=== PATIENT | female | born 1940 | race Caucasian/White ===

== ENCOUNTER 2020-10-10 06:00 | Outpatient (RCR) | payer MEDICARE, OTHER, SELFPAY | END 2020-10-24 23:59 | disposition home or self-care (01) | LOC: SPT 06:00 | PROVIDERS: Family Provider Nurse Practitioner Family; Referring Provider Neurological Surgery; Visit Provider Neurological Surgery | DX: M54.16 Radiculopathy, lumbar region (principal) | CPT/HCPCS: 97110; 97161 ==

== ENCOUNTER 2020-10-25 06:00 | Outpatient (RCR) | payer MEDICARE, OTHER, SELFPAY | END 2020-11-24 23:59 | disposition home or self-care (01) | LOC: SPT 06:00 | PROVIDERS: Family Provider Nurse Practitioner Family; Referring Provider Neurological Surgery; Visit Provider Neurological Surgery | DX: M54.16 Radiculopathy, lumbar region (principal) | CPT/HCPCS: 97110 ==

== ENCOUNTER 2021-01-27 02:49 | Emergency (ER) | payer MEDICARE, OTHER, SELFPAY ==
[2021-01-27 02:55] VITALS: BP 195/92; PULSE 66; RESP 16; TEMP 36.6; O2SAT 100; BMI 27.1
--- NOTE | 2021-01-27 03:04 | ED_ITS ---
HPI - General Adult General: Chief complaint: General Medical Stated complaint: high bp Time Seen by Provider: 01/27/21 03:04 History of Present Illness: HPI narrative: Patient is a 80-year-old female comes to the ED with elevated blood pressure. Patient just started taking new blood pressure medication valsartan yesterday. Patient says she took her blood pressure at home and the systolic number was over 200. Patient then went to her daughters house and checked blood pressure and systolic number over 200 as well. Patient did say that she had just climbing some steps when she checked her blood pressure the first time. Patient says she is asymptomatic and has no complaints. She then decided to come here to the ED to be evaluated. Denies any neurological symptoms such as change in vision, weakness/numbness tingling to face or extremities, headache. Denies any chest pain or shortness of breath. Associated symptoms: Deny chest pain, dyspnea, headache(s), nausea, rash, palpitations or vomiting Review of Systems Narrative: Patient had elevated blood pressure reading at home. Const: Denies: fever(s), chills or fatigue Eyes: Denies: change in vision or eye discomfort ENMT: Denies: throat pain, odynophagia, nasal discharge or nasal congestion Card: Denies: chest pain, palpitations, edema, swelling of feet/ankles, dyspnea on exertion or orthopnea Resp: Denies: dyspnea, productive cough or non-productive cough GI: Denies: abdominal pain, nausea, vomiting, diarrhea, constipation or hematochezia : Denies: flank pain, dysuria or hematuria Musc: Denies: neck pain, back pain or extremity swelling Skin/Breast: Denies: rash or new lesions Neuro: Denies: headache(s), numbness in extremities or weakness in extremities [facility] ED PFSH: Social History Smoking and tobacco status: never smoked Physical Exam Const: COMMON NORMALS: patient oriented x3 and alert ORIENTATION/CONSCIOUSNESS: Yes oriented to person, Yes oriented to place and Yes oriented to time HENMT: COMMON NORMALS: normocephalic HEAD & SCALP: normocephalic MOUTH: Normal oral and palatal mucosa present THROAT: posterior oropharynx normal and uvula midline Eye: COMMON NORMALS: Equal, round and reactive pupils present and EOMs intact bilaterally PUPIL: Yes Equal, round and reactive pupils present Neck/C-Spine: COMMON NORMALS: supple GENERAL: Yes normal visual inspection Resp: COMMON NORMALS: normal respiratory effort, No retractions, No use of accessory muscles and clear to auscultation bilaterally AUSCULTATION: clear to auscultation bilaterally Cardio: COMMON NORMALS: regular rate, regular rhythm, S1 normal heart sound present, S2 normal heart sound present, No gallops present (Cardio), No clicks present (Cardio), No murmurs present (Cardio) and Peripheral pulses 2+ throughout RATE: regular rate RHYTHM: regular rhythm HEART SOUNDS: S1 normal heart sound present and S2 normal heart sound present PERIPHERAL PULSES: Peripheral pulses 2+ throughout GI: COMMON NORMALS: Normal to inspection, nondistended, normoactive bowel sounds present, Soft to palpation, non-tender and no masses PALPATION: Yes Soft to palpation : COMMON NORMALS: Yes no CVA tenderness BLADDER/KIDNEY EXAM: Yes no CVA tenderness Back/Pelvis: COMMON NORMALS: no CVA tenderness Extremity: COMMON NORMALS: normal to inspection Neuro: COMMON NORMALS: patient oriented x3, CN's II-XII intact bilaterally, moves all extremities and no sensory deficits noted SENSORIUM/ORIENTATION: Yes alert, Yes oriented to person, Yes oriented to place and Yes oriented to time COORDINATION/BALANCE: [id number] test normal SPEECH: speech normal SENSORY EXAM: Yes extremities (Intact to soft touch) MOTOR EXAM: 5/5 motor strength present throughout and No Pronator motor function present COORDINATION: [id number] test normal Skin: GENERAL SKIN EXAM: dry skin Course Vital Signs: Vital signs: Vital Signs Temperature 97.8 F 01/27/21 02:55 Pulse Rate 62 01/27/21 03:42 Respiratory Rate 16 01/27/21 02:55 Blood Pressure 195/92 01/27/21 02:55 Pulse Oximetry 97 01/27/21 03:42 While I was in the room I checked patient's blood pressure twice. One of the readings is 177/92, 184/96. MDM - General Adult MDM Narrative: Medical decision making narrative: Patient is a 80-year-old female comes to the ED with elevated blood pressure readings at home. Patient is asymptomatic and comes in to the ED with no complaints. Denies any headache, vision changes or any neurological symptoms. Patient just started taking a newly prescribed blood pressure med valsartan yesterday. Here in the ED patient had a blood pressure reading of 195/92 initially and then when I was in the room patient had blood pressure readings of 177/92 and 184/96. Patient remained asymptomatic and neuro exam was completely normal. Since blood pressure is trending downward and patient is currently taking a new blood pressure medication and asymptomatic I decided not to give patient any blood pressure lowering meds here in the ED department due to risk of hypotension. patient was diagnosed with hypertension and and discharged home. Told patient to continue checking her blood pressure daily and throughout the day. I also told her to continue taking her valsartan and contact her PCP or care worker tomorrow morning to discuss ED visit. Return to ED precautions given. Patient understood and agreed with plan. Discharge Plan Discharge Patient Disposition: Home Clinical Impression: Hypertension Qualifiers: Hypertension type: unspecified Qualified Code(s): I10 - Essential (primary) hypertension Condition: Stable Prescriptions: No Action gabapentin 300 mg capsule 600 mg PO BID RF: 0 famotidine 20 mg tablet 20 mg PO BID RF: 0 donepezil 10 mg tablet 10 mg PO DAILY RF: 0 metoprolol succinate 25 mg capsule,sprinkle,ER 24hr 25 mg PO DAILY RF: 0 diclofenac sodium 75 mg tablet,delayed release (DR/EC) 75 mg PO BID RF: 0 atorvastatin 20 mg tablet 20 mg PO DAILY RF: 0 zolpidem 5 mg tablet PO RF: 0 azithromycin 250 mg tablet See Rx Instructions PO .COMPLEX Qty: 6 RF: 0 Discharge Orders: Discharge ED (Routine); Ordered 01/27/21 Ordered By: Marcio Saul Referrals: Sisi Cash APN [Primary Care Provider] - Discharge Diet: Regular Discharge Activity: Resume usual activity Patient Instructions: Hypertension (ED) Activity Restrictions/Additional Instructions: Follow-up with medical provider as directed. Contact your PCP or care worker tomorrow to discuss with them your ED visit. Continue monitoring your blood pressure at home daily. Continue taking your home medications including your newly prescribed blood pressure medication. Return to the ER or your medical provider if condition worsens. Please read and understand discharge instructions. If any questions, please ask. Coding Level of Care Code ED [employer] Project Manager for Adria Fwsukumar Exam Comprehensive
[2021-01-27 03:42] VITALS: PULSE 62; O2SAT 97
== END 2021-01-27 03:42 | disposition home or self-care (01) ==
PROVIDERS: Emergency Provider Physician Assistant; PCP Nurse Practitioner Family
DX: I10 Essential (primary) hypertension (principal)
CPT/HCPCS: 99281

== ENCOUNTER 2021-09-24 06:00 | Outpatient (RCR) | payer MEDICARE, OTHER, SELFPAY | END 2021-10-24 23:59 | disposition home or self-care (01) | LOC: TPT 06:00 | PROVIDERS: PCP Nurse Practitioner Family; Referring Provider Physician Assistant Surgical; Visit Provider Physician Assistant Surgical | DX: M54.16 Radiculopathy, lumbar region (principal) | CPT/HCPCS: 97110; 97163 ==

== ENCOUNTER 2021-10-25 06:00 | Outpatient (RCR) | payer MEDICARE, OTHER, SELFPAY | END 2021-11-24 23:59 | disposition home or self-care (01) | LOC: TPT 06:00 | PROVIDERS: PCP Nurse Practitioner Family; Referring Provider Physician Assistant Surgical; Visit Provider Physician Assistant Surgical | DX: M54.16 Radiculopathy, lumbar region (principal) | CPT/HCPCS: 97110; 97164 ==

== ENCOUNTER 2021-11-25 06:00 | Outpatient (RCR) | payer MEDICARE, OTHER, SELFPAY | END 2021-12-22 23:59 | disposition home or self-care (01) | LOC: TPT 06:00 | PROVIDERS: PCP Nurse Practitioner Family; Referring Provider Physician Assistant Surgical; Visit Provider Physician Assistant Surgical | DX: M54.16 Radiculopathy, lumbar region (principal) | CPT/HCPCS: 97110 ==

== ENCOUNTER 2021-12-23 06:00 | Outpatient (RCR) | payer MEDICARE, OTHER, SELFPAY | END 2022-01-09 23:59 | disposition home or self-care (01) | LOC: TPT 06:00 | PROVIDERS: PCP Nurse Practitioner Family; Referring Provider Physician Assistant Surgical; Visit Provider Physician Assistant Surgical | DX: M54.16 Radiculopathy, lumbar region (principal) | CPT/HCPCS: 97110 ==

== ENCOUNTER 2023-07-02 14:00 | Outpatient (CLI) | payer MEDICARE, OTHER, SELFPAY ==
--- NOTE | 2023-07-02 14:12 | XR_ITS ---
WS: [id number] Left knee, 3 views, 07/02/2023 Clinical Data: LEFT MEDIAL KNEE PAIN Comparison: None. Findings: No fractures or dislocations are seen. The joint spaces are normal. The patella is intact with a smal l posterior superior spur. The soft tissues are unremarkable. There is minimal cartilage calcification in the medial and lateral joint spaces. Impression: Minimal posterior left patellar spurring with calcification of the articular cartilage. Kellgren-Ken Classification: grade 1 (doubtful): doubtful joint space narrowing and possible ost eophytic lipping
== END 2023-07-02 14:01 | disposition home or self-care (01) ==
PROVIDERS: PCP Nurse Practitioner Family; Visit Provider Nurse Practitioner Family
DX: M25.562 Pain in left knee (principal); M25.862 Other specified joint disorders, left knee
CPT/HCPCS: 73562

== ENCOUNTER 2023-10-07 08:25 | Emergency (ER) | payer MEDICARE, OTHER, SELFPAY ==
[2023-10-07] VITALS (9 sets, daily range): BP systolic 139–200; BP diastolic 67–98; PULSE 57–78; RESP 18; TEMP 36.9; O2SAT 96–100; BMI 25.0
--- NOTE | 2023-10-07 08:38 | CT_ITS ---
WS: [id number] CT scan of the head, 10/07/2023 Clinical Data: trauma Comparison: None. DLP: 1288.[address] scans at [facility] use at least one of these dose optimization techniques: automated e xposure control; mA and/or kV adjustment per patient size (includes targeted exams where dose is matc hed to clinical indication); or iterative reconstruction. Findings: The ventricular system is normal without shift. The sulci and ventricular system are minimally promin ent. No recent infarct or hemorrhage is seen. There are no abnormal intracerebral masses. The cerebel lum and brainstem are not remarkable. Bony windows of the skull and skull base show no fractures or erosions. There is a dressing over the left frontal bone. The internal auditory canals, sella turcica, intraorbital contents, and paranasal sinuses are unremarkable. The mastoid air cells show sclerosis and poor aeration. Impression: 1. Negative for acute intracranial abnormality. 2. Dressing over left orbit and left frontal bone but no skull fractures are seen. 3. Mild cerebral atrophy.
--- NOTE | 2023-10-07 08:38 | CT_ITS ---
WS: [id number] CT cervical spine. Additional two-dimensional coronal and sagittal reconstruction was performed. 09/24 Clinical Data: trauma Comparison: Cervical spine, 08/25/2019 DLP: 1288.[address] scans at [facility] use at least one of these dose optimization techniques: automated e xposure control; mA and/or kV adjustment per patient size (includes targeted exams where dose is matc hed to clinical indication); or iterative reconstruction. Findings: No compression fractures are seen. There is an anterior cervical disc fusion at C4-C5 with an artific ial disc which is stable and intact. There is a posterior fusion of the right lamina at C4-C5 with pe dicle screws and a connecting che which remains stable. There is degenerative disc narrowing at C3-C4 with anterior and posterior osteophyte formation. There is a bony fusion of the C5, C6 and C7 verteb ra. There is a anterior subluxation of C7 on T1 of 0.2 cm which is probably positional rather than tr aumatic. The spinous processes are in good alignment. The odontoid is unremarkable. There is facet ornna int arthritis at almost every level. There is osteoarthritic change of the C1-C2 articulation. There is no prevertebral soft tissue swelling. The soft tissues of the cervical spine and the lung apices a re not remarkable. Impression: 1. Negative for cervical spine fracture. 2. Stable anterior and posterior cervical fusions at C4-C5. 3. Stable bony fusion of C5-C7. 4. Degenerative disc narrowing at C3-C4.
[2023-10-07 08:51] LABS: Basophils % 0.3 %; Eosinophils # 0.1 10^3/uL (0.0-0.8); Eosinophils % 1.3 %; Hematocrit 40.7 % (36-47); Lymphocytes # 1.7 10^3/uL (0.8-4.8); Lymphocytes % 23.7 %; Mean Corpuscular HGB Conc 32.7 g/dL (30-55); Mean Corpuscular Hemoglobin 31.4 pg (27-33); Mean Platelet Volume 11.4 fL (7.4-10.4); Monocytes # 0.4 10^3/uL (0.2-0.9); Monocytes % 6.3 %; Neutrophils # 4.77 10^3/uL (1.8-7.7); Neutrophils % 68.1 %; Nucleated Red Blood Cells % 0 %; Platelet Count 194 10^3/cmm (157-399); Red Blood Count 4.24 10^6/uL (3.85-5.65); Red Cell Distribution Width 12.7 % (12.1-15.1)
--- NOTE | 2023-10-07 08:51 | ED_ITS ---
HPI - Wound/Laceration 2 General: Chief Complaint: Wound/Laceration Stated Complaint: Fall Time Seen by Provider: 10/07/23 08:28 History of Present Illness: 83-year-old female presents emergency ro om via EMS had stumbled and fell at home this morning as large laceration on her forehead she did not lose consciousness. No nausea or vomiting denies chest pain or shortness of breath Associated symptoms: Denies chills or fever(s) Review of Systems 2 Const: Denies: fever(s) or chills Card: Denies: chest pain Resp: Denies: dyspnea GI: Denies: abdominal pain : Denies: dysuria, urinary frequency or urinary urgency Musc: Denies: neck pain or back pain Skin/Breast: Denies: rash PFSH ED 2 PFSH: Social History Smoking and tobacco/nicotine status: never used tobacco/nicotine Physical Exam 2 Const: COMMON NORMALS: no acute distress GENERAL APPEARANCE: cooperative and comfortable ORIENTATION/CONSCIOUSNESS: Yes awake, Yes oriented to person, Yes oriented to place and Yes oriented to time HENMT: COMMON NORMALS: normocephalic, atraumatic and hearing grossly normal bilaterally HEAD & SCALP: normocephalic and atraumatic Resp: COMMON NORMALS: normal respiratory effort, No retractions, No use of accessory muscles and clear to auscultation bilaterally AUSCULTATION: clear to auscultation bilaterally Cardio: COMMON NORMALS: regular rate, regular rhythm and No murmurs present (Cardio) RATE: regular rate RHYTHM: regular rhythm GI: COMMON NORMALS: Soft to palpation and No hepatosplenomegaly present A USCULTATION: Yes normoactive bowel sounds PALPATION: Yes Soft to palpation, No Tenderness to palpation present (GI), No Guarding due to palpation present (GI) and Yes No hepatosplenomegaly present Extremity: COMMON NORMALS: normal to inspection, capillary refill normal, no clubbing, cyanosis or edema, no calf tenderness and no pedal edema Neuro: SENSORIUM/ORIENTATION: Yes oriented to person, Yes oriented to place and Yes oriented to time Skin: COMMON NORMALS: no rashes or lesions noted GENERAL SKIN EXAM: no rashes or lesions noted Procedures Laceration Laceration 1: Site: face Side (If applicable): left Size (cm): 15 Description: linear Depth: simple, single layer Local Anesthetic: lidocaine 1% and with epi Amount of anesthesia used (mL): 8 Pre-repair: wound explored and irrigated extensively Skin layer closed with: nylon Size (cm): 5-0 Technique: simple, interrupted Procedural Sedation Indication: laceration repair ASA Class: I Preparation: playground monitor applied, pulse oximeter, supplemental O2 applied and suction/airway equipment at bedside Midazolam: IV Midazolam dose (mg): 3 Course 2 Vital Signs: Vital signs: Vital Signs Temperature 98.4 F 10/07/23 08:25 Pulse Rate 61 10/07/23 08:25 Respiratory Rate 18 10/07/23 08:25 Blood Pressure 200/89 10/07/23 08:25 Pulse Oximetry 98 10/07/23 08:25 Oxygen Delivery Me thod Room Air 10/07/23 08:25 MDM - Wound/Laceration Medical Decision Making Labs and imaging reviewed no acute findings on the imaging studies. Large laceration on the forehead extending to the hairline on the left in the midline closed with conscious sedation augmented with local anesthesia and interrupted sutures wound care instructions given sutures removed in 7 days. Medical Records I reviewed the patient's medical records. Lab Data I reviewed the patient's lab results. 10/07/23 08:39 10/07/23 08:39 Laboratory Results WBC 7.00 10^3/uL (3.29-11.43) 10/07/23 08:39 RBC 4.24 10^6/uL (3.85-5.65) 10/07/23 08:39 Hgb 13.30 g/dL (11.27-16.99) 10/07/23 08:39 Hct 40.7 % (36-47) 10/07/23 08:39 MCV 96.0 fl (85-98) 10/07/23 08:39 MCH 31.4 pg (27-33) 10/07/23 08:39 MCHC 32.7 g/dL (30-55) 10/07/23 08:39 RDW 12.7 % (12.1-15.1) 10/07/23 08:39 Plt Count 194 10^3/cmm (157-399) 10/07/23 08:39 MPV 11.4 fL (7.4-10.4) H 10/07/23 08:39 Neut % (Auto) 68.1 % 10/07/23 08:39 Lymph % (Auto) 23.7 % 10/07/23 08:39 [place] % (Auto) 6.3 % 10/07/23 08:39 Eos % (Auto) 1.3 % 10/07/23 08:39 Baso % (Auto) 0.3 % 10/07/23 08:39 Neut # (Auto) 4.77 10^3/uL (1.8-7.7) 10/07/23 08:39 Lymph # (Auto) 1.7 10^3/uL (0.8-4.8) 10/07/23 08:39 [place] # (Auto) 0.4 10^3/uL (0.2-0.9) 10/07/23 08:39 Eos # (Auto) 0.1 10^3/uL (0.0-0.8) 10/07/23 08:39 Baso # (Auto) 0.0 10^3/uL (0.0-0.1) 10/07/23 08:39 Nucleated RBC % (auto) 0 % 10/07/23 08:39 Nucleated RBCs # 0.0 /100WBC 10/07/23 08:39 Sodium 139 mmol/L (136-145) 10/07/23 08:39 Potassium 4.0 mmol/L (3.5-5.1) 10/07/23 08:39 Chloride 103 mmol/L (98-107) 10/07/23 08:39 Carbon Dioxide 26 mmol/L (22-29) 10/07/23 08:39 Anion Gap 14.0 (5-19) 10/07/23 08:39 BUN 24 mg/dL (8-23) H 10/07/23 08:39 Creatinine 1.0 mg/dL (0.5-0.9) H 10/07/23 08:39 GFR Calculation Not Reportable 10/07/23 08:39 Glucose 114 mg/dL (65-115) 10/07/23 08:39 Calculated Osmolality 293 mOsm/kg (285-295) 10/07/23 08:39 Calcium 9.4 mg/dL (8.5-10.5) 10/07/23 08:39 Total Bilirubin 0.6 mg/dL (0.15-1.2) 10/07/23 08:39 AST 25 U/L (0-32) 10/07/23 08:39 ALT 24 U/L (0-33) 10/07/23 08:39 Alkaline Phosphatase 90 U/L (35-105) 10/07/23 08:39 Total Protein 7.3 g/dL (6.6-8.7) 10/07/23 08:39 Albumin 4.4 g/dL (3.5-5.2) 10/07/23 08:39 Globulin 2.9 g/dL (1.3-4.6) 10/07/23 08:39 Urine Color Yellow (Yellow) 10/07/23 10:26 Urine Appearance Hazy (CLEAR) A 10/07/23 10:26 Urine pH 7 (5-7) 10/07/23 10:26 Ur Specific [place] 1.015 (1.005-1.030) 10/07/23 10:26 Urine Protein Neg (Negative) 10/07/23 10:26 Urine Glucose (UA) Norm (Normal) 10/07/23 10:26 Urine Ketones Negative (Negative) 10/07/23 10:26 Urine Blood Neg (Negative) 10/07/23 10:26 Urine Nitrate Negative (Negative) 10/07/23 10:26 Urine Bilirubin Neg (Negative) 10/07/23 10:26 Urine Urobilinogen Norm mg/dL (Negative) 10/07/23 10:26 Ur Leukocyte Esterase Negative (Negative) 10/07/23 10:26 Urine RBC None /hpf (0-2) 10/07/23 10:26 Urine WBC 0-4 /hpf (0-5) H 10/07/23 10:26 Ur Squamous Epith Cells 0-4 /hpf (0-5) H 10/07/23 10:26 Amorphous Sediment Trace /hpf 10/07/23 10:26 Urine Bacteria None /hpf (NONE) 10/07/23 10:26 Urine Mucus None /hpf 10/07/23 10:26 All radiology interpretation(s) finalized by discharge Discharge Plan Discharge Patient Disposition: Home Clinical Impression: Laceration, Fall Condition: Stable Prescriptions: New mupirocin 2 % ointment 1 applic topical BID Qty: 22 0RF No Action gabapentin 300 mg capsule 600 mg PO BID famotidine 20 mg tablet 20 mg PO BID donepezil 10 mg tablet 10 mg PO DAILY diclofenac sodium 75 mg tablet,delayed release (DR/EC) 75 mg PO BID atorvastatin 40 mg tablet 40 mg PO QPM zinc acetate 25 mg (zinc) Capsule 25 mg PO DAILY cetirizine 10 mg tablet 10 mg PO DAILY tizanidine 4 mg tablet 4 mg PO TID PRN (Reason: Muscle Spasm) valsartan 80 mg tablet 80 mg PO BID Aspir-81 81 mg Tablet,Delayed Release (Dr/Ec) 81 mg PO DAILY Vitamin D3 25 mcg (1,000 unit) Tablet 25 mcg PO DAILY Centrum Silver Women 8 mg iron-400 mcg-50 mcg Tablet 1 tab PO DAILY Discharge Orders: Discharge ED (Routine); Ordered 10/07/23 Ordered By: Sage Ash Referrals: Sisi Cash APN [Primary Care Provider] - Discharge Diet: Usual diet Discharge Activity: Increase activity as tolerated Patient Instructions: Laceration (ED), Opioid Safety, Pain Management Activity Restrictions/Additional Instructions: Thank you for choosing [facility] for your healthcare needs today. Please realize this is an emergency room and that we are providing you with a medical screening exam and this may not be complete and all inclusive of all the testing and or work up that you may need to determine your ailment or severity of your illness. It is very important that you follow up as instructed or that you return to the Emergency Department should you have concerns or if your condition changes or worsens in any way. He was seen in the emergency room after a fall. Your labs and imaging were normal. Laceration was closed with sutures without difficulty. Recommend you have the sutures removed in 7 days. Primary care doctor. Coding Level of Care Code ED Machine Tool Designer for Adria Quiroz
[2023-10-07 09:09] LABS: Alanine Aminotransferase 24 U/L (0-33); Albumin Level 4.4 g/dL (3.5-5.2); Alkaline Phosphatase 90 U/L (35-105); Aspartate Amino Transferase 25 U/L (0-32); Blood Urea Nitrogen 24 mg/dL (8-23); Calcium 9.4 mg/dL (8.5-10.5); Carbon Dioxide 26 mmol/L (22-29); Chloride 103 mmol/L (98-107); Globulin 2.9 g/dL (1.3-4.6); Glucose 114 mg/dL (65-115); Osmolality Calculated 293 mOsm/kg (285-295); Sodium 139 mmol/L (136-145); Total Bilirubin 0.6 mg/dL (0.15-1.2); Total Protein 7.3 g/dL (6.6-8.7)
[2023-10-07] MEDS: tetanus-dipt-pertussis 0.5 mL SDV IM (09:13)
--- NOTE | 2023-10-07 09:40 | XR_ITS ---
WS: [email or web address] Exam: XR knee LT 3V* [id number] Date/Time of Exam: 10/07/2023 10:00 AM Reason For Exam: pain Comparison 07/02/2023. No acute fracture or dislocation. No joint effusion. Chondrocalcinosis noted. IMPRESSION: 1. No fracture or joint effusion. 2. Minimal degenerative changes and chondrocalcinosis.
--- NOTE | 2023-10-07 09:53 | XR_ITS ---
WS: [email or web address] Exam: XR lumbar spine 2-3V* [id number] Date/Time of Exam: 10/07/2023 9:59 AM Reason For Exam: pain There is posterior fusion of the spine from T9-T12, L1 and L2 and L4-5. The fusion is stable in appea erich without evidence of hardware failure or malposition. Pronounced osteopenia. Disc spacers at L3- 4, L4-5 and L2-3. Mild levoscoliosis. No acute fracture. Partially visualized RIGHT total hip replace ment. IMPRESSION: 1. Stable appearing lower thoracic and lumbar posterior fusions with pedicle screws and posterior che s. The fusions are stable in appearance without hardware failure or other significant complication. 2. Pronounced osteopenia and advanced degenerative changes. Levoscoliosis.
--- NOTE | 2023-10-07 09:53 | XR_ITS ---
WS: [email or web address] Exam: XR thoracic spine 3V* [id number] Date/Time of Exam: 10/07/2023 10:00 AM Reason For Exam: pain No fracture or dislocation noted. Posterior fusion from T9-T12 with pedicle screws and posterior rods . Degenerative disc changes at all levels and mild spondylosis. Pronounced osteopenia. Minimal dextr oscoliosis. Normal paraspinal soft tissues. IMPRESSION: 1. No fracture or malalignment. 2. Posterior fusion from T9-T12. 3. Degenerative changes, osteopenia and slight dextroscoliosis.
[2023-10-07 10:39] LABS: Add Urine Microscopic? YES; Bilirubin Urine Neg (Negative); Blood Urine Neg (Negative); Glucose Urine UA Norm (Normal); Ketones Urine Negative (Negative); Leukocyte Esterase Urine Negative (Negative); Nitrate Urine Negative (Negative); Protein Urine Neg (Negative); Specific Gravity, Urine 1.015 (1.005-1.030); Urine Appearance Hazy (CLEAR); Urine Color Yellow (Yellow); Urobilinogen Urine Norm (Negative); pH Urine 7 (5-7)
[2023-10-07 10:53] LABS: Add Urine Culture? No; Amorphous Sediment Urine TRACE /hpf; Squamous Epithelial Cell Urine 0-4 /hpf (0-5); WBC Urine 0-4 /hpf (0-5)
[2023-10-07] MEDS: midazolam 1 mg/mL INJ 2 mL 4 MG IVP (11:52)
[2023-10-07] MEDS: lidocaine-epi 1% 20 mL INJ INJECTION (11:52)
== END 2023-10-07 13:12 | disposition home or self-care (01) ==
PROVIDERS: Emergency Provider Family Medicine; PCP Nurse Practitioner Family
DX: S01.81XA Laceration without foreign body of other part of head, initial encounter (principal); W01.0XXA Fall on same level from slipping, tripping and stumbling without subsequent striking against object, initial encounter; Z79.82 Long term (current) use of aspirin; Z23 Encounter for immunization
CPT/HCPCS: 12016; 36415; 70450; 72072; 72100; 72125; 73562; 80053; 81001; 85025; 90471; 90715; 99285; J2250

== ENCOUNTER 2024-12-18 10:29 | Outpatient (CLI) | payer MEDICARE, OTHER, SELFPAY ==
--- NOTE | 2024-12-18 10:33 | MM_ITS ---
WS: [email or web address] BILATERAL SCREENING DIGITAL TOMOSYNTHESIS MAMMOGRAM WITH CAD HISTORY: SCREENING COMPARISON: 09/22/2019 Bilateral CC and MLO views with tomosynthesis and synthetic mammography submitted. Computer aided detection analyzed. Breast composition: The breasts are heterogeneously dense, which may obscure small masses. No suspicious masses, microcalcifications or architectural distortion. Increased asymmetries in the LEFT breast are stable. Benign moderate vascular calcifications and benign calcifications within each breast. MM/MM [facility] tomosynthesis [id number] IMPRESSION: BI-RADS: 2 - Benign FOLLOW UP: 1 Year Follow-up
== END 2024-12-18 10:30 | disposition home or self-care (01) ==
LOC: RAD 10:30
PROVIDERS: PCP Nurse Practitioner Family; Visit Provider Electrodiagnostic Medicine
DX: Z12.31 Encounter for screening mammogram for malignant neoplasm of breast (principal); R92.333 Mammographic heterogeneous density, bilateral breasts; N64.89 Other specified disorders of breast; R92.1 Mammographic calcification found on diagnostic imaging of breast
CPT/HCPCS: 77063; 77067

== ENCOUNTER 2025-01-23 12:46 | Outpatient (RCR) | payer MEDICARE, OTHER, SELFPAY | END 2025-02-21 23:59 | disposition home or self-care (01) | LOC: SPT 12:46 | PROVIDERS: PCP Nurse Practitioner Family; Visit Provider Electrodiagnostic Medicine | DX: M54.16 Radiculopathy, lumbar region (principal) | CPT/HCPCS: 97110; 97162 ==

== ENCOUNTER 2025-02-22 05:00 | Outpatient (RCR) | payer MEDICARE, OTHER, SELFPAY | END 2025-03-24 23:59 | disposition home or self-care (01) | LOC: SPT 05:00 | PROVIDERS: PCP Nurse Practitioner Family; Visit Provider Electrodiagnostic Medicine | DX: M54.16 Radiculopathy, lumbar region (principal) | CPT/HCPCS: 97110 ==

== ENCOUNTER 2025-08-21 12:53 | Outpatient (RCR) | payer MEDICARE, OTHER, SELFPAY | END 2025-08-24 23:59 | disposition home or self-care (01) | LOC: SPT 12:53 | PROVIDERS: Visit Provider Electrodiagnostic Medicine | DX: M54.9 Dorsalgia, unspecified (principal); G89.29 Other chronic pain | CPT/HCPCS: 97161 ==

== ENCOUNTER 2025-08-25 05:00 | Outpatient (RCR) | payer MEDICARE, OTHER, SELFPAY | END 2025-09-23 23:59 | disposition home or self-care (01) | LOC: SPT 05:00 | PROVIDERS: PCP Electrodiagnostic Medicine; Visit Provider Electrodiagnostic Medicine | DX: M54.9 Dorsalgia, unspecified (principal); G89.29 Other chronic pain | CPT/HCPCS: 97110; 97530 ==

== ENCOUNTER 2025-08-28 13:30 | Outpatient (CLI) | payer MEDICARE, OTHER, SELFPAY ==
--- NOTE | 2025-08-28 13:35 | MR_ITS ---
WS: [email or web address] MRI BRAIN WITH AND WITHOUT CONTRAST HISTORY: MEMORY LOSS COMPARISON: 10/07/2023 TECHNIQUE: Multiplanar imaging performed through the brain with MultiHance 14 ml's IV. Normal diffusion imaging. No acute infarct. Moderate cerebral and cerebellar atrophy. Moderate periventricular and subcortical T2 and FLAIR signal hyperintensities. No large territory infarct. Mild small vessel disease in the RIGHT emre. Bilateral hippocampal atrophy. No susceptibility artifacts or prior lacunar infarcts. Ventricles and extra-axial spaces are normal. Clivus and pituitary gland are normal. Normal craniocervical junction. Postcontrast images are negative for masses or vascular malformations. Dural venous sinuses are normal. Paranasal sinuses: Well aerated with no significant disease. Mastoid air cells: Normal. Calvarium and scalp: Normal. MR/MR head wo/w con [id number] IMPRESSION: 1. Diffusion imaging is normal. No acute infarct. 2. Moderate cerebral and cerebellar atrophy. 3. Mild hippocampal atrophy. 4. Moderate periventricular and subcortical signal hyperintensities. Different ial includes small vessel changes, smoking, diabetes and hypertension. 5. No enhancing masses.
[2025-08-28] MEDS: gadobenate dimeglumine 20 mL vial 14 ML IV (14:23)
== END 2025-08-28 13:31 | disposition home or self-care (01) ==
LOC: RAD 13:32
PROVIDERS: PCP Electrodiagnostic Medicine; Visit Provider Electrodiagnostic Medicine
DX: R41.3 Other amnesia (principal); G31.89 Other specified degenerative diseases of nervous system; R93.0 Abnormal findings on diagnostic imaging of skull and head, not elsewhere classified
CPT/HCPCS: 70553

== ENCOUNTER 2025-09-24 05:00 | Outpatient (RCR) | payer MEDICARE, OTHER, SELFPAY | END 2025-10-24 23:59 | disposition home or self-care (01) | LOC: SPT 05:00 | PROVIDERS: PCP Electrodiagnostic Medicine; Visit Provider Electrodiagnostic Medicine | DX: M54.9 Dorsalgia, unspecified (principal); G89.29 Other chronic pain | CPT/HCPCS: 97110; 97164 ==